=== PATIENT | male | born 1945 | race Asian ===

== ENCOUNTER 2019-04-29 16:20 | Emergency (ER) | payer SELFPAY ==
[~2019-04-29] VITALS: Ht 154.9 cm; Wt 63.6 kg
[2019-04-29] MEDS ORDERED: ALLO100T PO (16:25)
[2019-04-29] MEDS ORDERED: SIMV-259 PO (16:25)
[2019-04-29] MEDS ORDERED: COLC0.6T73 PO (16:25)
[2019-04-29 16:30] VITALS: BP 160/91
== END 2019-04-29 16:40 | disposition short-term general hospital (02) ==
LOC: EMS 16:22
DX: S42.401B Unspecified fracture of lower end of right humerus, initial encounter for open fracture (principal); S00.83XA Contusion of other part of head, initial encounter; E78.00 Pure hypercholesterolemia, unspecified; W13.2XXA Fall from, out of or through roof, initial encounter; Y93.89 Activity, other specified; Y92.89 Other specified places as the place of occurrence of the external cause; Y99.8 Other external cause status
CPT/HCPCS: 99291